=== PATIENT | male | born 2005 | race Caucasian/White ===

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

== ENCOUNTER 2024-01-31 17:14 | Emergency (ER) | payer OTHER ==
[2024-01-31 17:37] VITALS: RESP 18
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
[2024-01-31] MEDS: IBUPROFEN 400 MG TAB PO STA (20:23)
[2024-01-31] MEDS: ACETAMINOPHEN TAB 325 MG TAB PO STA (20:24)
[2024-01-31 20:29] VITALS: BP 121/79; PULSE 74; TEMP 98.1
== END 2024-01-31 20:29 | disposition home or self-care (01) ==
LOC: EC 17:14
DX: S89.91XA Unspecified injury of right lower leg, initial encounter (principal); Z88.0 Allergy status to penicillin; V89.2XXA Person injured in unspecified motor-vehicle accident, traffic, initial encounter; Y92.411 Interstate highway as the place of occurrence of the external cause
CPT/HCPCS: 99284

== ENCOUNTER 2024-10-11 10:40 | Emergency (ER) | payer OTHER ==
--- NOTE | 2024-10-11 10:52 | ED ---
Abdominal Pain HPI - General Chief Complaint: Abdominal Pain Stated Complaint: Abd pain,vomiting Time Seen by Provider: 10/11/24 10:44 Source: patient, RN notes reviewed Mode of arrival: ambulatory Limitations: no limitations - History of Present Illness Initial Comments: This is a 18-year-old male who presents to the emergency department for abdominal pain. States that around 5 AM he suddenly developed pain in his mid abdomen. This was followed by nausea and vomiting. Denies any radiation of pain. Believes that it may be slightly worse on the left side. Reports possible constipation. Denies any fevers/chills. He does use marijuana regularly and reports using it more than usual lately. Symptoms also improve when he takes a warm bath. MD Complaint: abdominal pain - Related Data Previous Rx's Medication Instructions Recorded Cephalexin [Keflex] 500 mg PO Q6HR #28 cap 02/27/21 Metoclopramide [Reglan] 5 mg PO Q6H PRN #20 tab 10/11/24 Ondansetron Odt [Zofran Odt] 4 mg PO Q8HR PRN #20 tab 10/11/24 Allergies Allergy/AdvReac Type Severity Reaction Status Date / Time Penicillins Allergy Unknown Verified 10/11/24 10:43 Review of Systems ROS Statement: Those systems with pertinent positive or pertinent negative responses have been documented in the HPI. ROS Other: All systems not noted in ROS Statement are negative. Past Medical History Past Medical History: No Reported History History of Any Multi-Drug Resistant Organisms: None Reported Past Surgical History: No Surgical Hx Reported Past Psychological History: No Psychological Hx Reported Smoking Status: Never smoker Past Alcohol Use History: None Reported Past Drug Use History: None Reported General Exam Limitations: no limitations General appearance: alert, in distress Head exam: Present: atraumatic, normocephalic, normal inspection Respiratory exam: Present: normal lung sounds bilaterally. Absent: respiratory distress, wheezes, rales, rhonchi, stridor Cardiovascular Exam: Present: regular rate, normal rhythm GI/Abdominal exam: Present: soft, tenderness (diffuse), normal bowel sounds. Absent: distended Neurological exam: Present: alert, oriented X3, CN II-XII intact Psychiatric exam: Present: normal affect, normal mood Skin exam: Present: warm, dry, intact, normal color. Absent: rash Course Vital Signs 10/11/24 10/11/2410/11/25 10:41 11:42 13:24 Temperature 97.4 F L 98.6 F Pulse Rate 46 L 78 47 L Respiratory 17 20 20 Rate Blood Pressure 160/95 131/88 126/82 O2 Sat by Pulse 100 100 100 Oximetry 10/11/24 15:06 Temperature 97.9 F Pulse Rate 47 L Respiratory 20 Rate Blood Pressure 134/83 O2 Sat by Pulse 100 Oximetry Medical Decision Making - Medical Decision Making This is a 18-year-old male who presents to the emergency department for abdominal pain. Was pt. sent in by a medical professional or institution? @ -No Did you speak to anyone other than the patient for history? @ -No Did you review nursing and triage notes? @ -Yes, and I agree, it is accurate with regards to the patient's symptoms. Were old charts reviewed? @ -No Differential Diagnosis? @ -Differential Abdominal Pain Men: Appendicitis, cholecystitis, diverticulosis, ischemic bowel, pancreatitis, hepatitis, UTI, gastroenteritis, AAA, incarcerated hernia, bowel obstruction, constipation, inflammatory bowel, hepatitis, peptic ulcer disease, splenic infarction, perforated viscus, testicular torsion, this is not meant to be an all-inclusive list EKG interpreted by me (3pts min.)? @ -Not obtained X-rays interpreted by me (1pt min.)? @ -Not obtained CT interpreted by me (1pt min.)? @ -CT scan of the abdomen and pelvis obtained. My interpretation identifies no bowel wall thickening or free air. U/S interpreted by me (1pt. min.)? @ -Gallbladder ultrasound obtained. My interpretation identifies no cholelithiasis. What testing was considered but not performed? (CT, X-rays, U/S, labs)? Why? @ -None What meds were considered but not given? Why? @ -None Did you discuss the management of the patient with other professionals? @ -No Did you reconcile home meds? @ -No Was smoking cessation discussed for >3mins.? @ -No Was critical care preformed (if so, how long)? @ -No Were there social determinants of health that impacted care today? How? (Homelessness, low income, unemployed, alcoholism, drug addiction, transp ortation, low edu. Level, literacy, decrease access to med. care, senior living, rehab)? @ -No Was there de-escalation of care discussed even if they declined? (Discuss DNR or withdrawal of care, Hospice)? @ -No What co-morbidities impacted this encounter? (DM, HTN, Smoking, COPD, CAD, Cancer, CVA, Hep., AIDS, mental health diagnosis, sleep apnea, morbid obesity)? @ -None Was patient admitted / discharged? @ -Discharged. Lab work demonstrates leukocytosis with a white blood cell count of 12.6 and is otherwise unremarkable. Urinalysis negative for signs of infection. UDS positive for marijuana. CT scan of the abdomen and pelvis obtained revealing no acute process. Patient's family was concerned about not h aving a cause of his pain. Advised that we could try a gallbladder ultrasound given that the pain is more so towards the upper abdomen. Family is in agreement and this was performed. No acute process was identified. UDS was positive for marijuana. Discussed that cannabinoid hyperemesis syndrome is a possible cause of his symptoms, especially given that he has increased his usage. Symptoms were managed in the emergency department and he was sent home with capsaicin cream to see if that is effective. Reglan and Zofran prescribed for any additional nausea. Advised avoiding marijuana use for the meantime and following up with his PCP for reevaluation of symptoms. Patient discharged home in stable condition. Case discussed with ED attending Dr. Desai. Return precautions reviewed in depth, the patient is instructed to return to the emergency department with any new, worsening, or concerning symptoms. Patient verbalized understanding. Undiagnosed new problem with uncertain prognosis? @ -None Drug Therapy requiring intensive monitoring for toxicity (Heparin, Nitro, Insulin, Cardizem)? @ -None Were any procedures done? @ -None Diagnosis/symptom? @ -Abdominal pain, nausea and vomiting Acute, or Chronic, or Acute on Chronic? @ -Acute Uncomplicated (without systemic symptoms) or Complicated (systemic symptoms)? @ -Uncomplicated Side effects of treatment? @ -None Exacerbation, Progression, or Severe Exacerbation] @ -Not applicable Poses a threat to life or bodily function? @ -No - Lab Data Result diagrams: 10/11/24 11:05 10/11/24 11:05 Lab Results 10/11/24 10/11/24 10/11/24 Range/Units 11:05 11:05 11:05 WBC 12.6 H (4.0-11.0) k/uL RBC 4.89 (4.30-5.90) m/uL Hgb 15.6 (13.0-17.5) gm/dL Hct 47.5 (39.0-53.0) % MCV 97.0 (80.0-100.0) fL MCH 31.8 (25.0-35.0) pg MCHC 32.8 (31.0-37.0) g/dL RDW 12.1 (11.5-15.5) % Plt Count 207 (150-450) k/uL MPV 9.5 Neutrophils % 80 % Lymphocytes % 13 % Monocytes % 5 % Eosinophils % 1 % Basophils % 0 % Neutrophils # 10.0 H (1.3-7.7) k/uL Lymphocytes # 1.6 (1.0-4.8) k/uL Monocytes # 0.6 (0-1.0) k/uL Eosinophils # 0.1 (0-0.7) k/uL Basophils # 0.0 (0-0.2) k/uL Sodium 137 (137-145) mmol/L Potassium 3.9 (3.5-5.1) mmol/L Chloride 100 (98-107) mmol/L Carbon Dioxide 29 (22-30) mmol/L Anion Gap 8 mmol/L BUN 12 (9-20) mg/dL Creatinine 0.79 (0.66-1.25) mg/dL Est GFR (CKD-EPI)AfAm >90 (>60 ml/min/1.73 sqM) Est GFR (CKD-EPI)NonAf >90 (>60 ml/min/1.73 sqM) Glucose 125 H (74-99) mg/dL Plasma Lactic Acid Evan (0.7-2.0) mmol/L Calcium 9.3 (8.4-10.2) mg/dL Total Bilirubin 0.5 (0.2-1.3) mg/dL AST 27 (17-59) U/L ALT 19 (4-49) U/L Alkaline Phosphatase 51 (38-126) U/L Total Protein 7.0 (6.3-8.2) g/dL Albumin 4.6 (3.5-5.0) g/dL Amylase 47 (30-110) U/L Lipase 89 (23-300) U/L Urine Color Yellow Urine Appearance Clear (Clear) Urine pH 6.0 (5.0-8.0) Ur Specific [place] 1.029 (1.001-1.035) Urine Protein Negative (Negative) Urine Glucose (UA) Negative (Negative) Urine Ketones Negative (Negative) Urine Blood Negative (Negative) Urine Nitrite Negative (Negative) Urine Bilirubin Negative (Negative) Urine Urobilinogen 3.0 (<2.0) mg/dL Ur Leukocyte Esterase Negative (Negative) Urine Opiates Screen (NotDetected) Ur Oxycodone Screen (NotDetected) Urine Methadone Screen (NotDetected) Ur Barbiturates Screen (NotDetected) U Tricyclic Antidepress (NotDetected) Ur Phencyclidine Scrn (NotDetected) Ur Amphetamines Screen (NotDetected) U Methamphetamines Scrn (NotDetected) U Benzodiazepines Scrn (NotDetected) Urine Cocaine Screen (NotDetected) U Marijuana (THC) Screen (NotDetected) 10/11/24 10/11/24 Range/Units 11:05 11:05 WBC (4.0-11.0) k/uL RBC (4.30-5.90) m/uL Hgb (13.0-17.5) gm/dL Hct (39.0-53.0) % MCV (80.0-100.0) fL MCH (25.0-35.0) pg MCHC (31.0-37.0) g/dL RDW (11.5-15.5) % Plt Count (150-450) k/uL MPV Neutrophils % % Lymphocytes % % Monocytes % % Eosinophils % % Basophils % % Neutrophils # (1.3-7.7) k/uL Lymphocytes # (1.0-4.8) k/uL Monocytes # (0-1.0) k/uL Eosinophils # (0-0.7) k/uL Basophils # (0-0.2) k/uL Sodium (137-145) mmol/L Potassium (3.5-5.1) mmol/L Chloride (98-107) mmol/L Carbon Dioxide (22-30) mmol/L Anion Gap mmol/L BUN (9-20) mg/dL Creatinine (0.66-1.25) mg/dL Est GFR (CKD-EPI)AfAm (>60 ml/min/1.73 sqM) Est GFR (CKD-EPI)NonAf (>60 ml/min/1.73 sqM) Glucose (74-99) mg/dL Plasma Lactic Acid Evan 1.9 (0.7-2.0) mmol/L Calcium (8.4-10.2) mg/dL Total Bilirubin (0.2-1.3) mg/dL AST (17-59) U/L ALT (4-49) U/L Alkaline Phosphatase (38-126) U/L Total Protein (6.3-8.2) g/dL Albumin (3.5-5.0) g/dL Amylase (30-110) U/L Lipase (23-300) U/L Urine Color Urine Appearance (Clear) Urine pH (5.0-8.0) Ur Specific [place] (1.001-1.035) Urine Protein (Negative) Urine Glucose (UA) (Negative) Urine Ketones (Negative) Urine Blood (Negative) Urine Nitrite (Negative) Urine Bilirubin (Negative) Urine Urobilinogen (<2.0) mg/dL Ur Leukocyte Esterase (Negative) Urine Opiates Screen Not Detected (NotDetected) Ur Oxycodone Screen Not Detected (NotDetected) Urine Methadone Screen Not Detected (NotDetected) Ur Barbiturates Screen Not Detected (NotDetected) U Tricyclic Antidepress Not Detected (NotDetected) Ur Phencyclidine Scrn Not Detected (NotDetected) Ur Amphetamines Screen Detected H (NotDetected) U Methamphetamines Scrn Not Detected (NotDetected) U Benzodiazepines Scrn Not Detected (NotDetected) Urine Cocaine Screen Not Detected (NotDetected) U Marijuana (THC) Screen Detected H (NotDetected) - Radiology Data Radiology results: report reviewed, image reviewed Disposition Clinical Impression: Abdominal pain, Nausea and vomiting Disposition: HOME SELF-CARE Instructions (If sedation given, give patient instructions): Acute Nausea and Vomiting (ED), Abdominal Pain (ED) Additional Instructions: Return to the emergency department with any new, worsening, or concerning symptoms. You can take the Zofran up to every 8 hours as needed for nausea and vomiting and the Reglan up to every 6 hours as needed for nausea and vomiting. Try applying the capsaicin cream when you develop abdominal pain to see if that is effective. Try to also avoid using marijuana for the next several days to see if that gives you any relief. Follow up with your primary care provider in 1-2 days. Prescriptions: Metoclopramide [Reglan] 5 mg PO Q6H PRN #20 tab PRN Reason: Nausea And Vomiting Ondansetron Odt [Zofran Odt] 4 mg PO Q8HR PRN #20 tab PRN Reason: Nausea And Vomiting Is patient prescribed a controlled substance at d/c from ED?: No Referrals: Rodger Palacios DO [Primary Care Provider] - 1-2 days Time of Disposition: 14:54
[2024-10-11] MEDS: ONDANSETRON 4 MG/2 ML VIAL IVP STA (11:00)
[2024-10-11] MEDS: KETOROLAC 15 MG/ML 1 ML VIAL IVP STA ×2 (11:02→13:08)
[2024-10-11] MEDS: SODIUM CHLORIDE 0.9% 1,000 ML IV ONE (11:04)
[2024-10-11] MEDS: MORPHINE SULFATE 4 MG/ML SYRINGE IVP STA ×2 (11:04→13:22)
[2024-10-11 11:20] LABS: Basophils % (A) 0 %; Eosinophils # (A) 0.1 k/uL (0-0.7); Eosinophils % (A) 1 %; HCT 47.5 % (39.0-53.0); HGB 15.6 gm/dL (13.0-17.5); Lymphocytes # (A) 1.6 k/uL (1.0-4.8); Lymphocytes % (A) 13 %; MCH 31.8 pg (25.0-35.0); MCHC 32.8 g/dL (31.0-37.0); Mean Platelet Volume 9.5; Monocytes # (A) 0.6 k/uL (0-1.0); Monocytes % (A) 5 %; Neutrophils % (A) 80 %; Platelet Count 207 k/uL (150-450); RBC 4.89 m/uL (4.30-5.90); RDW 12.1 % (11.5-15.5); WBC 12.6 k/uL (4.0-11.0)
[2024-10-11 11:26] LABS: Appearance,Urine Clear (Clear); Bilirubin,Urine Negative (Negative); Blood,Urine Negative (Negative); Color,Urine Yellow; Glucose,Urine (UA) Negative (Negative); Ketones,Urine Negative (Negative); Leukocyte Esterase,Urine Negative (Negative); Nitrite,Urine Negative (Negative); Protein,Urine Negative (Negative); Specific Gravity,Urine 1.029 (1.001-1.035)
[2024-10-11 11:40] LABS: ALT 19 U/L (4-49); AST 27 U/L (17-59); African American GFR (CKD) >90 (>60 ml/min/1.73 sqM); Albumin 4.6 g/dL (3.5-5.0); Alkaline Phosphatase 51 U/L (38-126); Amylase 47 U/L (30-110); Anion Gap 8 mmol/L; Blood Urea Nitrogen 12 mg/dL (9-20); Calcium 9.3 mg/dL (8.4-10.2); Carbon Dioxide 29 mmol/L (22-30); Chloride 100 mmol/L (98-107); Glucose 125 mg/dL (74-99); Lipase 89 U/L (23-300); Non-African American GFR(CKD) >90 (>60 ml/min/1.73 sqM); Potassium 3.9 mmol/L (3.5-5.1); Sodium 137 mmol/L (137-145); Total Bilirubin 0.5 mg/dL (0.2-1.3)
[2024-10-11 11:42] VITALS: RESP 20
--- NOTE | 2024-10-11 11:49 | CT ---
EXAMINATION TYPE: CT abdomen pelvis w con DATE OF EXAM: 10/11/2024 COMPARISON: NONE CLINICAL INDICATION: Male, 18 years old with history of abdominal pain, acute, nonlocalized, abdomina l pain and vomiting starting today, TECHNIQUE: CT scan of the abdomen and pelvis is performed with IV Contrast, patient injected with 80ml mL of Iso rupinder 300., (none if empty) Oral contrast used: without Oral Contrast (none if empty) CT DLP: 488.1 mGycm, Automated exposure control for dose reduction was used. FINDINGS: LUNG BASES: No significant abnormality is appreciated. LIVER/GB: Mild periportal edema present which is nonspecific finding. Hepatomegaly is seen measuring 19.7 cm on coronal image 24 PANCREAS: No significant abnormality is seen. SPLEEN: No significant abnormality is seen. ADRENALS: No significant abnormality is seen. KIDNEYS: Symmetrical corticomedullary uptake and excretion without hydronephrosis seen bilaterally. BOWEL: Evaluation is suboptimal due to lack of enteric contrast and patient having little internal fa t. Low-lying cecum into the anterior lower pelvis. No abnormal small or large bowel dilatation. PROSTATE/SEMINAL VESICLES: No gross abnormality seen. LYMPH NODES: No greater than 1cm abdominal or pelvic lymph nodes are appreciated. OSSEOUS STRUCTURES: No significant abnormality is seen. OTHER: No significant additional abnormality is seen. IMPRESSION: No bowel obstruction. No significant acute finding is seen to account for patient's clin ical symptoms. [facility], , 10/11/2024 11:47 AM
[2024-10-11] MEDS: DICYCLOMINE 20 MG TAB PO STA (12:33)
[2024-10-11] MEDS: METOCLOPRAMIDE 5 MG/ML 2 ML VIAL IVP STA (12:33)
[2024-10-11 13:26] VITALS: PULSE 47
[2024-10-11 13:28] LABS: Amphetamine Screen,Urine Detected (NotDetected); Barbiturate Screen,Urine Not Detected (NotDetected); Benzodiazepines Screen,Urine Not Detected (NotDetected); Cocaine Screen,Urine Not Detected (NotDetected); Methadone Screen, Urine Not Detected (NotDetected); Opiate Screen,Urine Not Detected (NotDetected); Oxycodone Screen, Urine Not Detected (NotDetected); Phencyclidine Screen,Urine Not Detected (NotDetected); Tricyclic Antidepressant,Urine Not Detected (NotDetected); Urn Cannabinoid Scrn Detected (NotDetected)
--- NOTE | 2024-10-11 14:09 | US ---
EXAMINATION TYPE: US gallbladder DATE OF EXAM: 10/11/2024 COMPARISON: CT 2024, US 2023 CLINICAL INDICATION: Male, 18 years old with history of Epigastric pain; Pain started at 6 am. TECHNIQUE: Grayscale and color Doppler imaging of the right upper quadrant. FINDINGS: EXAM MEASUREMENTS: Liver Length: 18.1 cm Gallbladder Wall: 0.25 cm CBD: 0.28 cm, color Doppler imaging was utilized to isolate the common bile duct for measurement. Right Kidney: 10.4 x 5.1 x 4.0 cm REHABILITATION TEAM LEAD NOTES: Exam is limited due to gas. Pancreas: Slightly limited. *There appear to be tiny hyperechoic foci throughout the pancreatic ta il Liver: Enlarged. Hypoechoic area seen adjacent to the gallbladder: 4.2 x 2.6 x 1.3 cm. Gallbladder: Appears anechoic Evidence for sonographic Mejia's sign: No CBD: Appears wnl Right Kidney: No hydronephrosis or masses seen Slightly limited examination of the pancreas with tiny hyperechoic foci within the tail. No correspon ding calculi on concurrent CT. Liver is borderline enlarged with focal fatty sparing adjacent to the gallbladder. Gallbladder demonstrate no wall thickening, stones, or stranding fluid. Negative sonogra phic Mejia's sign. Common bile duct appears within normal limits. Right kidney demonstrates no hydro nephrosis, shadowing calculi or solid mass. IMPRESSION: 1. No ultrasound evidence for acute process. 2. Borderline hepatomegaly. [facility], , 10/11/2024 2:07 PM
[2024-10-11] MEDS: CAPSAICIN 0.025% CREAM 60 GM TUBE TOPICAL STA (14:17)
[2024-10-11] MEDS: ONDANSETRON 4 MG ODT STARTER PACK 2 TAB BTL PO STA (15:00)
[2024-10-11] MEDS: traMADol 50 MG STARTER PACK 3 TAB BTL PO STA (15:00)
[2024-10-11 15:07] VITALS: BP 134/83; TEMP 97.9
== END 2024-10-11 15:16 | disposition home or self-care (01) ==
LOC: EC 10:40
DX: R11.2 Nausea with vomiting, unspecified (principal); Z88.0 Allergy status to penicillin
CPT/HCPCS: 36415; 80053; 82150; 83605; 83690; 85025; 81003; 80306; 76705; 74177; 99284; 96374; 96375 ×3; 96376 ×2; 96361; J2270; J2765; J2405; J1885; S0119; Q9967